=== PATIENT | female | born 1975 | race Caucasian/White ===

== ENCOUNTER → 2016-09-03 | Outpatient (CLI) | payer BC ==
[~2016-09-03] VITALS: Ht 167.6 cm; Wt 96.2 kg
[~2016-09-03] MED LIST: ALDOMET250 MG PO; CALCIUM500 M4 PO; COLACE100 MG PO; DICLEGIS DR 101 EACH PO; FOLIC ACID0.4 MG PO; HYDROCODON-ACE1 EAC7 PO; IBUPROFEN800 MG PO; METFORMIN HCL1000 MG PO; METHYLDOPA250 MG PO; PRENATAL TABLE1 EACH PO; ZANTAC75 M1 PO
[2016-09-03 13:36] VITALS: BP 129/85
== END | disposition home or self-care (01) ==
LOC: IVINF 12:58
DX: O36.0910 Maternal care for other rhesus isoimmunization, first trimester, not applicable or unspecified (principal); O26.851 Spotting complicating pregnancy, first trimester; Z3A.09 9 weeks gestation of pregnancy; Z88.6 Allergy status to analgesic agent
CPT/HCPCS: 96372; J2790

== ENCOUNTER 2016-10-05 05:44 | Day surgery (SDC) | payer BC ==
[~2016-10-05] VITALS: Ht 167.6 cm; Wt 93.0 kg
[~2016-10-05 05:44] MED LIST changes: +CALCIUM 500 MG1 EACH PO; +COLACE10 MG/ML PO; +FOLIC ACID20 MG PO
[2016-10-05] MEDS ORDERED: LO-DOSE ASPIRIN81 M2 PO (06:49)
[2016-10-05 06:51] VITALS: BP 140/82
[2016-10-05 10:25] VITALS: BP 132/73
[2016-10-05 11:37] VITALS: BP 132/68
[2016-10-05 12:21] VITALS: BP 119/73
== END 2016-10-05 12:35 | disposition home or self-care (01) ==
LOC: SDC 05:44
PROC: 0U914ZZ Drainage of Left Ovary, Percutaneous Endoscopic Approach (ICD-10-PCS; principal; 2016-10-05)
DX: O34.81 Maternal care for other abnormalities of pelvic organs, first trimester (principal); N83.292 Other ovarian cyst, left side; O99.611 Diseases of the digestive system complicating pregnancy, first trimester; K66.0 Peritoneal adhesions (postprocedural) (postinfection); O09.511 Supervision of elderly primigravida, first trimester; O30.001 Twin pregnancy, unspecified number of placenta and unspecified number of amniotic sacs, first trimester; Z3A.13 13 weeks gestation of pregnancy
CPT/HCPCS: 86850; 86900; 86901; J0330; J1170; J2405; J2710; J3010

== ENCOUNTER → 2017-01-15 | Outpatient (CLI) | payer BC ==
[~2017-01-15] VITALS: Ht 167.6 cm; Wt 100.0 kg
[~2017-01-15] MED LIST changes: +ALDOMET500 MG PO; +DHA100 MG PO; +LO-DOSE ASPIRIN81 M2 PO
[2017-01-15 09:52] VITALS: BP 140/82
== END | disposition home or self-care (01) ==
LOC: IVINF 09:30
DX: Z31.82 Encounter for Rh incompatibility status (principal); Z3A.28 28 weeks gestation of pregnancy; Z67.41 Type O blood, Rh negative; Z91.09 Other allergy status, other than to drugs and biological substances; Z88.5 Allergy status to narcotic agent
CPT/HCPCS: 96372; J2790

== ENCOUNTER 2017-02-23 09:03 | Inpatient (IN) | payer BC ==
[~2017-02-23] VITALS: Ht 167.6 cm; Wt 104.3 kg
[2017-02-23] VITALS (11 sets, daily range): BP systolic 137–160; BP diastolic 75–105
[2017-02-23] MEDS ORDERED: HUMALOG100 UNIT/2 SC ×4 (09:41→09:42)
[2017-02-23] MEDS ORDERED: HUMULIN 70100 UNIT/3 SC (09:42)
[2017-02-23 11:17] LABS: EOSINOPHIL (%) 0.4 % (0-5); HEMATOCRIT 38.2 % (36.0-46.0); IMMATURE GRANULOCYTE (%) 0.4 % (0.0-0.7); INSTRUMENT ABS NEUTROPHIL CT 7.8 K/uL; LYMPHOCYTE COUNT 1.1 K/uL (1.0-2.8); MCH 29.8 PG (29.0-34.0); MCHC 33.2 G/DL (30.0-36.0); MCV 89.7 FL (83-99); MEAN PLAT.VOLUME 11.2 uM^3 (9.5-12.4); MONOCYTE (%) 5.3 % (3-12); MONOCYTE COUNT 0.5 K/uL (0-0.8); NEUTROPHIL (%) 81.9 % (45-76); NEUTROPHIL COUNT 7.8 K/uL (1.8-6.4); PLATELET COUNT 170 K/uL (156-360); RBC DIS.WIDTH-CV 14.9 % (11.8-14.6); RBC DIS.WIDTH-SD 48.4 % (39-53); RED BLOOD COUNT 4.26 M/uL (3.80-5.20); WHITE BLOOD COUNT 9.6 K/uL (4.1-10.2)
[2017-02-23 11:25] LABS: ADD MIUA? NO; BILIRUBIN NEGATIVE; BLOOD NEGATIVE; COLOR YELLOW ((YELLOW)); GLUCOSE (STRIP) NEGATIVE; KETONES NEGATIVE; LEUKOCYTES NEGATIVE; NITRITE NEGATIVE; PROTEIN (STRIP) NEGATIVE; SPECIFIC GRAVITY 1.008 (1.000-1.030); UROBILINOGEN 0.2 MG/DL (0.2-1.0)
[2017-02-23 11:39] LABS: ANION GAP 10 MEQ/L (2-14); CHLORIDE 106 MEQ/L (99-109); SAMPLE HEMOLYSIS CHECK 0; SAMPLE ICTERIC CHECK 0; SAMPLE LIPEMIA CHECK 0; SODIUM 139 MEQ/L (136-147); TOTAL BILIRUBIN 0.3 MG/DL (0.0-1.0)
[2017-02-23 11:44] LABS: ALKALINE PHOSPHATASE 126 IU/L (3-129); GFR ESTIMATE (CALCULATED) > 59 mL/min/; GLUCOSE 109 mg/dL (70-99); UREA NITROGEN (BUN) 8 mg/dL (9-23)
[2017-02-23 12:40] LABS: COCAINE NEGATIVE (150 ng/mL); METHAMPHETAMINE NEGATIVE (500 ng/mL); OPIATES (MORPHINE) NEGATIVE (100 ng/mL); PHENCYCLIDINE NEGATIVE (25 ng/mL); THC CANNABINOIDS NEGATIVE (50 ng/mL)
[2017-02-23 12:41] LABS: ADD MEDTOX COMMENT Y; AMPHETAMINE PRESUMPTIVE POSITIVE (500 ng/mL); BARBITURATES NEGATIVE (200 ng/mL); BENZODIAZEPINES NEGATIVE (150 ng/mL); INTERNAL CONTROLS VALID? YES; METHADONE NEGATIVE (200 ng/mL); OXYCODONE NEGATIVE (100 ng/mL); PROPOXYPHENE NEGATIVE (300 ng/mL); TRICYCLIC ANTIDEPRESSANTS NEGATIVE (300 ng/mL)
[2017-02-24] VITALS (13 sets, daily range): BP systolic 127–157; BP diastolic 70–96
[2017-02-25] VITALS (30 sets, daily range): BP systolic 122–171; BP diastolic 71–98
[2017-02-25 10:32] LABS: POINT-OF-CARE USER ID 607291304
[2017-02-25 14:24] LABS: POINT-OF-CARE USER ID 607291304
[2017-02-25 18:37] LABS: POINT-OF-CARE USER ID 607291304
[2017-02-25] MEDS ORDERED: IBUPROFEN800 MG PO (22:33)
[2017-02-25] MEDS ORDERED: ALDOMET500 MG PO (22:33)
[2017-02-26] VITALS (7 sets, daily range): BP systolic 125–139; BP diastolic 79–87
[2017-02-26 06:02] LABS: EOSINOPHIL (%) 0.4 % (0-5); HEMATOCRIT 30.3 % (36.0-46.0); IMMATURE GRANULOCYTE (%) 0.5 % (0.0-0.7); IMMATURE GRANULOCYTE COUNT 0.1 K/uL; INSTRUMENT ABS NEUTROPHIL CT 8.8 K/uL; LYMPHOCYTE COUNT 1.4 K/uL (1.0-2.8); MCH 30.2 PG (29.0-34.0); MCHC 33.3 G/DL (30.0-36.0); MCV 90.7 FL (83-99); MEAN PLAT.VOLUME 11.5 uM^3 (9.5-12.4); MONOCYTE (%) 8.3 % (3-12); MONOCYTE COUNT 0.9 K/uL (0-0.8); NEUTROPHIL (%) 78.5 % (45-76); NEUTROPHIL COUNT 8.8 K/uL (1.8-6.4); PLATELET COUNT 125 K/uL (156-360); RBC DIS.WIDTH-CV 14.6 % (11.8-14.6); RBC DIS.WIDTH-SD 48.1 % (39-53); WHITE BLOOD COUNT 11.2 K/uL (4.1-10.2)
[2017-02-26 06:04] LABS: RED BLOOD COUNT 3.34 M/uL (3.80-5.20)
[2017-02-27 03:13] VITALS: BP 127/75
[2017-02-27 07:27] VITALS: BP 134/76
[2017-02-27 11:44] VITALS: BP 146/85
[2017-02-27] MEDS ORDERED: IBUPROFEN800 MG PO (12:53)
[2017-02-27 19:48] LABS: POINT-OF-CARE METER ID UU13113692
[2017-02-27 19:48] LABS: POINT-OF-CARE METER ID UU13113692
[2017-02-27 19:48] LABS: POINT-OF-CARE METER ID UU13113692
[2017-02-27 19:48] LABS: POINT-OF-CARE METER ID UU13113692
[2017-02-27 19:48] LABS: POINT-OF-CARE METER ID UU13113692
[2017-02-27 19:48] LABS: POINT-OF-CARE METER ID UU13113692
[2017-02-27 19:48] LABS: POINT-OF-CARE METER ID UU13113692
[2017-02-27 19:48] LABS: POINT-OF-CARE METER ID UU13113692
[2017-02-27 19:49] LABS: POINT-OF-CARE METER ID UU13113692
== END 2017-02-27 15:00 | disposition home or self-care (01) | DRG 767 ==
LOC: LDRP-OP 09:03 → 2WEST 09:04 → LDRP-OP 05-08 12:53
PROVIDERS: Obstetrics & Gynecology; Obstetrics & Gynecology Gynecology
PROC: 3E033VJ Introduction of Other Hormone into Peripheral Vein, Percutaneous Approach (ICD-10-PCS; principal; 2017-02-23)
PROC: 3E0S3CZ (ICD-10-PCS; 2017-02-25)
PROC: 10D17ZZ Extraction of Products of Conception, Retained, Via Natural or Artificial Opening (ICD-10-PCS; 2017-02-25)
PROC: 00HU33Z Insertion of Infusion Device into Spinal Canal, Percutaneous Approach (ICD-10-PCS; 2017-02-25)
PROC: 10907ZC Drainage of Amniotic Fluid, Therapeutic from Products of Conception, Via Natural or Artificial Opening (ICD-10-PCS; 2017-02-25)
PROC: 10E0XZZ Delivery of Products of Conception, External Approach (ICD-10-PCS; 2017-02-25)
DX: O42.013 Preterm premature rupture of membranes, onset of labor within 24 hours of rupture, third trimester (principal); O60.14X1 Preterm labor third trimester with preterm delivery third trimester, fetus 1; O24.12 Pre-existing type 2 diabetes mellitus, in childbirth; O60.14X2 Preterm labor third trimester with preterm delivery third trimester, fetus 2; O10.92 Unspecified pre-existing hypertension complicating childbirth; Z37.2 Twins, both liveborn; O30.043 Twin pregnancy, dichorionic/diamniotic, third trimester; E11.9 Type 2 diabetes mellitus without complications; O69.81X2 Labor and delivery complicated by cord around neck, without compression, fetus 2; Z3A.34 34 weeks gestation of pregnancy; Z37.0 Single live birth; Z79.4 Long term (current) use of insulin; Z79.84 Long term (current) use of oral hypoglycemic drugs; O09.523 Supervision of elderly multigravida, third trimester; Z87.891 Personal history of nicotine dependence; O73.0 Retained placenta without hemorrhage
CPT/HCPCS: 76805; 76810; 80053; 80306 90; 81003; 82948; 83030; 84999; 85025; 86870; 86900; 86901; 86905; 86920; 87070; 87075; 87081; 87086; 87205; 88307; C1755; G0378; J0290; J0702; J1815; J2270; J2405; J2790; J3010; J7050; J7120

== ENCOUNTER → 2017-04-20 | Outpatient (CLI) | payer BC ==
[~2017-04-20] MED LIST changes: +DAILY VALUE1 EACH PO; +FIORICET 50-301 EACH PO; +FOLIC ACID1 MG PO; -FOLIC ACID20 MG PO; +HUMALOG100 UNIT/2 SC; +HUMULIN 70100 UNIT/3 SC; +MOTRIN800 MG PO; +PERCOCET 5/31 TABLET PO; +ZOLOFT50 MG PO
== END | disposition home or self-care (01) ==
LOC: CDC 14:21
DX: Z01.810 Encounter for preprocedural cardiovascular examination (principal)
CPT/HCPCS: 93000

== ENCOUNTER 2017-04-23 10:05 | Day surgery (SDC) | payer BC ==
[~2017-04-23] VITALS: Ht 167.6 cm; Wt 93.4 kg
[~2017-04-23 10:05] MED LIST changes: -MOTRIN800 MG PO; -PERCOCET 5/31 TABLET PO
[2017-04-23 10:43] LABS: HEMATOCRIT 40.9 % (36.0-46.0); MCH 28.9 PG (29.0-34.0); MCHC 32.5 G/DL (30.0-36.0); MCV 88.9 FL (83-99); MEAN PLAT.VOLUME 9.6 uM^3 (9.5-12.4); PLATELET COUNT 242 K/uL (156-360); RBC DIS.WIDTH-CV 12.6 % (11.8-14.6); RBC DIS.WIDTH-SD 41.2 % (39-53); WHITE BLOOD COUNT 6.4 K/uL (4.1-10.2)
[2017-04-23 11:43] VITALS: BP 134/83
[2017-04-23] MEDS ORDERED: PERCOCET 5/31 TABLET PO (13:51)
[2017-04-23] MEDS ORDERED: MOTRIN800 MG PO (13:51)
[2017-04-23 16:45] VITALS: BP 126/78
[2017-04-23 17:45] VITALS: BP 146/86
== END 2017-04-23 18:15 | disposition home or self-care (01) ==
LOC: SDC 10:05
PROVIDERS: Obstetrics & Gynecology Gynecology
DX: O72.2 Delayed and secondary postpartum hemorrhage (principal); Z30.2 Encounter for sterilization; Z91.09 Other allergy status, other than to drugs and biological substances
CPT/HCPCS: 84702; 85027; 86850; 86870; 86900; 86901; 86905; 86920; 88302; 88305; J0131; J1100; J1170; J1885; J2250; J2405; J2710; J3010